=== PATIENT | female | born 1955 | race Caucasian/White ===

== ENCOUNTER 2024-01-18 11:30 | Day surgery (SDC) | payer MEDICARE, SELFPAY ==
[2024-01-18] VITALS (7 sets, daily range): BP systolic 92–128; BP diastolic 51–78; PULSE 70–89; RESP 16–18; TEMP 36.6–36.8; O2SAT 98–100
[2024-01-18] MEDS: LACTATED RINGERS 1000ML 1,000 ML 25 ML IV (11:54)
--- NOTE | 2024-01-18 12:02 | EXP.ANES.CKL ---
[facility] Disclaimer: The information contained in this section may have been updated after the patient was seen, as this information can be updated by other users. Medical History (Updated 01/18/24 @ 11:41 by Dianne Galvan RN) History of TMJ disorder Hypertension Oropharyngeal dysphagia GERD (gastroesophageal reflux disease) Surgical History (Updated 01/18/24 @ 11:41 by Dianne Galvan RN) History of hysterectomy History of esophagogastroduodenoscopy (EGD) History of colonoscopy Family History (Updated 01/18/24 @ 11:42 by Dianne Galvan RN) Other No significant family history Social History (Updated 01/18/24 @ 11:42 by Dianne Galvan RN) Smoking Status: Never smoker alcohol intake: current substance use type: denies use current occupational status: retired [employer] Anesthesia Checklist Patient Identification Patient Identification: Arm Band Structural Data Admitted From: Home Planned Operative Procedure/s: EGD/Colonoscopy Consent for Planned Operative Procedure(s) Verified: Yes Verified Documents: Surgical Consent and History and Physical NPO Status Verified Time NPO: 00:00 Additional verifications Anesthesia Reactions: No Airway Assessment Mallampati Score:: Class II C-Spine Mobility Assessed: Yes TMJ Mobility Assessed: Yes Dentition: Good Dentition Neurological Assessment Level of Consciousness: Awake, Alert and Appropriate Anesthesia Plan Anesthesia Risk discussed: Yes Anesthesia Plan: Verified ASA Class: II Anesthesia Type: MAC
--- NOTE | 2024-01-18 12:28 | P.HP_ITS ---
History of Present Illness *Admission Date: 01/18/24 *Reason for visit:: Globus sensation/GERD and screening *History of present illness: Mrs. Camargo is a 68-year-old female who is here for diagnostic upper endoscopy secondary to globus sensation and screening colonoscopy. Her last colonoscopy was 10 years ago. The examination is deemed medically necessary for EGD and screening colonoscopy. The patient has been seen, interviewed and examined prior to the procedure by both myself and the anesthesia provider. [facility] Disclaimer: The information contained in this section may have been updated after the patient was seen, as this information can be updated by other users. Medical History (Updated 01/18/24 @ 11:41 by Dianne Galvan RN) History of TMJ disorder Hypertension Oropharyngeal dysphagia GERD (gastroesophageal reflux disease) Surgical History (Updated 01/18/24 @ 11:41 by Dianne Galvan RN) History of hysterectomy History of esophagogastroduodenoscopy (EGD) History of colonoscopy Family History (Updated 01/18/24 @ 11:42 by Dianne Galvan RN) Other No significant family history Social History (Updated 01/18/24 @ 12:03 by Binu Gerard CRNA) Smoking Status: Never smoker alcohol intake: current substance use type: denies use current occupational status: retired Travel in the last 8 weeks: None Other Medical History Have you received the Pneumonia Vaccine: Yes Review of Systems Review of Systems Review of systems (narrative): Negative *Cardiovascular Comments: Negative *Gastrointestinal Comments: Negative *Genitourinary Comments: Negative *Musculoskeletal Comments: Negative *Neurologic Comments: Negative Meds Home Medications and Allergies Home Medications ?Medication ?Instructions ?Recorded ?Confirmed ?Type Saccharomyces boulardii 250 mg 250 mg PO BID 12/27/23 01/18/24 History capsule (Probiotic (S.boulardii)) acyclovir 400 mg tablet 400 mg PO BID PRN . 12/27/23 01/18/24 History hydrochlorothiazide 12.5 mg capsule 12.5 mg PO DAILY 12/27/23 01/18/24 History losartan 100 mg tablet 100 mg PO DAILY 12/27/23 01/18/24 History magnesium glycinate 100 mg (as 100 mg PO TID 12/27/23 01/18/24 History glycinate) tablet mv-mn-folic 200 mcg-vit K 15 1 cap PO DAILY 12/27/23 01/18/24 History mcg-lutein 5 mg-zeaxanthin 1 mg capsule (PreserVision AREDS 2 Plus Multivit) omeprazole 40 mg capsule,delayed 40 mg PO DAILY 12/27/23 01/18/24 History release polyethylene glycol 3350 17 17 g PO DAILY 12/27/23 01/18/24 History gram/dose oral powder (Miralax) potassium chloride 10 mEq 10 meq PO DAILY 12/27/23 01/18/24 History tablet,extended release propranolol 60 mg capsule,24 60 mg PO DAILY 12/27/23 01/18/24 History hr,extended release psyllium husk (with sugar) 3 1 tbsp PO DAILY 12/27/23 01/18/24 History gram/12 gram oral powder (Konsyl (sugar)) New Prescriptions to Start Prescriptions: Allergies Allergy/AdvReac Type Severity Reaction Status Date / Time metoprolol Allergy Verified 12/27/23 12:59 Exam Data for Last 24 hours Vital signs and Labs for Last 24 Hours: Temp Pulse Resp BP Pulse Ox O2 Del Method 97.8 F 73 16 128/78 100 Room Air 01/18/24 11:46 01/18/24 11:46 01/18/24 11:46 01/18/24 11:46 01/18/24 11:46 01/18/24 11:46 *Routine HEENT Exam Head: Present normocephalic Eye: Present EOMI and PERRL ENT: Present mucous membranes moist *Routine Neck Exam Neck: Present supple *Routine Respiratory Exam Respiratory: Present CTA bilaterally *Routine Cardiovascular Exam Cardiovascular: Present RRR *Routine Abdominal Exam Abdominal: Present soft and normoactive bowel sounds; Absent tenderness *Routine Rectal Exam Rectal:: deferred *Routine Genitalia Exam Genitalia:: deferred *Routine Extremities Exam Extremities: Absent cyanosis, clubbing or edema *Routine Skin Exam Skin: Present warm; Absent rash *Routine Neurological Exam Neurological: Present alert and oriented X3 Assessment and Plan *Assessment and plan (1) Dysphagia: Status: Acute Category: Medical Code(s): R13.10 - Dysphagia, unspecified (2) Globus sensation: Status: Acute Category: Medical Code(s): R09.A2 - Foreign body sensation, throat (3) Screening for colon cancer: Status: Acute Category: Medical Code(s): Z12.11 - Encounter for screening for malignant neoplasm of colon Plan A/P: 1. Dysphagia/globus sensation for EGD and screening for colon cancer for colonoscopy is the preprocedural diagnosis. The patient will be anesthetized/sedated using MAC sedation. The patient has been seen and examined. Cardiac and lung assessment prior to the examination is stable. Proceed with planned panendoscopy
--- NOTE | 2024-01-18 12:30 | P.PCN_ITS ---
[facility] [place] Procedure Note Date: 01/18/24 Time: 12:42 Procedure Note:: Upper Endoscopy Procedure Report: Esophagogastroduodenoscopy with cold biopsies and TTS balloon dilation Endoscopost: Pal Ortiz II, MD Referring Physician: Shruthi Rolon MD Date of Procedure: January 18, 2024 Equipment: Olympus GIF 190 standard upper endoscope Sedation: MAC sedation Indications: Mrs. Camargo is a 68-year-old female with globus sensation and GERD. She does take omeprazole daily. She does still feel food hanging and get some gurgling and feels like food can hang up after swallowing. She does report this globus sensation. She often feels the need to belch. She reports no bloating, nausea, gassiness, early satiety or dyspepsia. Procedure: Prior to the procedure, a history and physical exam was performed, and patient's medications and allergies were reviewed. The risks, benefits and alternatives of the sedation and procedure were discussed with the patient. All questions were answered and informed consent was obtained. The patient was brought to the procedure room. Patient identification and proposed procedure were verified by the physician and the nurse. The patient was placed in a left lateral decubitus position and the scope was passed under direct vision. Throughout the procedure, the patient's blood pressure, pulse, and oxygen saturations were monitored continuously. The upper GI endoscopy was accomplished without difficulty. The patient tolerated the procedure well. Findings: The scope was passed directly into the upper esophagus and advanced to the third portion of the duodenum. The post bulbar duodenum and duodenal bulb were normal with normal mucosa and conniventes. The ampulla was normal in appearance. The scope was withdrawn through a normal duodenal bulb and pylorus into the stomach. There was minimal linear reactive gastropathy of the antrum. The body and fundus of the stomach were normal. Upon retroflexion there was no hiatal hernia. Biopsies were taken from the antrum. The scope was then withdrawn into the esophagus. There was no evidence of reflux esophagitis or Griffin's. There was no Schatzki's ring. There was no corrugation or furrowing. There was some mild esophageal dysmotility. The entire esophagus was dilated to 60 [place]/20 mm with a TTS hydrostatic balloon. There was some resistance at the cricopharyngeus (cricopharyngeal spasm or cricopharyngeal fibrosis). There was no proximal esophageal inlet patch. The remainder of the esophageal mucosa was normal. Impression: 1. 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 Nonerosive GERD with mild esophageal dysmotility 3. Very mild linear reactive gastropathy of antrum Plan: I will discuss the findings with the patient and family and follow-up the gastric biopsies. I do feel that she will have clinical improvement of her globus with the esophageal dilation. I will proceed with screening colonoscopy.
--- NOTE | 2024-01-18 12:52 | HMH.PROCNOTE ---
[facility] Procedure Note Date: 01/18/24 Time: 13:07 Procedure Note:: Colonoscopy Procedure Report: Colonoscopy Endoscopist: Pal Ortiz II, MD Referring physician: Shruthi Burris MD Date of Procedure: January 18, 2024 Equipment: Olympus 190 variable stiffness pediatric colonoscope Sedation: MAC sedation Indication: Mrs. Camargo is a 68-year-old female who is here for follow-up screening colonoscopy and it has been 10 years since last colonoscopy. She has been on a fiber bowel regimen (combined MiraLAX plus Konsyl) for 10 to 15 years. She reports no abdominal pain, weight loss, change in her bowel habits or rectal bleeding. She reports no family history of colon cancer. Procedure: Prior to the procedure, a history and physical exam was performed, and patient's medications and allergies were reviewed. The risks, benefits and alternatives of the sedation and procedure were discussed with the patient. All questions were answered and informed consent was obtained. The patient was brought to the procedure room. Patient identification and proposed procedure were verified by the physician and the nurse. The patient was placed in a left lateral decubitus position and the scope was passed under direct vision. Throughout the procedure, the patient's blood pressure, pulse, and oxygen saturations were monitored continuously. The colonoscopy was accomplished without difficulty. The patient tolerated the procedure well. Findings: On digital rectal examination there was normal rectal tone. There were no external hemorrhoids. The colonoscope was introduced through the anal canal to the rectum and advanced to the cecum. The ileocecal valve and appendiceal orifice were identified. The scope was advanced a short distance into the ileum which appeared grossly normal. The scope was then withdrawn into the colon. The cecum, ascending, transverse, descending, sigmoid and rectum were grossly normal. There were no mucosal abnormalities identified. Upon retroflexion within the rectum there were no internal hemorrhoids.The preparation was excellent throughout with [place] Preparation Score of 9. The cecal time was 9 minutes. Impression: 1. Normal colonoscopy with intubation of the terminal ileum Plan: The patient will not require any further preventative/surveillance colonoscopy. I would continue the fiber bowel regimen (combined MiraLAX plus Konsyl) on a maintenance basis.
== END 2024-01-18 14:00 | disposition home or self-care (01) ==
PROVIDERS: PCP Internal Medicine; Visit Provider Internal Medicine Gastroenterology
PROC: 0DJ08ZZ Inspection of Upper Intestinal Tract, Via Natural or Artificial Opening Endoscopic (ICD-10-PCS; CPT 43235; principal; 2024-01-18 13:00)
DX: R13.10 Dysphagia, unspecified (principal); R09.A2 Foreign body sensation, throat; Z12.11 Encounter for screening for malignant neoplasm of colon; K21.9 Gastro-esophageal reflux disease without esophagitis; J39.2 Other diseases of pharynx; K22.4 Dyskinesia of esophagus; K31.9 Disease of stomach and duodenum, unspecified
CPT/HCPCS: 43239; 43249; G0121; 88305; C1726; J2704; J7120